=== PATIENT | female | born 1970 | race Caucasian/White ===

== ENCOUNTER 2023-05-02 15:17 | Emergency (ER) | payer BC, SELFPAY ==
[2023-05-02] VITALS (8 sets, daily range): BP systolic 148–173; BP diastolic 92–114; PULSE 81–91; RESP 15–24; TEMP 37.1; O2SAT 92–99; BMI 28.3
--- NOTE | 2023-05-02 15:45 | CTR_ITS ---
PROCEDURE INFORMATION: Exam: CT Chest With Contrast; Diagnostic Exam date and time: 05/02/2023 4:12 PM Age: 52 years old Clinical indication: Injury or trauma; Other: Fall from horse; Blunt; Additional info: Trauma; L rib/chest/abdominal pain TECHNIQUE: Imaging protocol: Diagnostic computed tomography of the chest with contrast. Radiation optimization: All CT scans at this facility use at least one of these dose optimization techniques: a the the utomated exposure control; mA and/or kV adjustment per patient size (includes targeted exams where dose is matched to clinical indication); or iterative reconstruction. Contrast material: OMNI 350; Contrast volume: 100 ml; Contrast route: INTRAVENOUS (IV); REPORTING DATA: Count of CT and Cardiac NM exams in prior 12 months: This patient has received 0 known CTs and 0 known cardiac nuclear medicine studies in the 12 months prior to the current study. COMPARISON: CR XR chest 1V portable [id number] 05/02/2023 3:57 PM RADIATION DOSE METRICS: Total DLP (mGy-cm): 1019 FINDINGS: Lungs: There is a small lung laceration left mid lung zone adjacent comminuted fracture 1-3 of the left 5th rib. There is a small-moderate size hemothorax within left paravertebral gutter and a small left anterior pneumothorax adjacent to the mediastinal pleural reflection estimated less than 10%. Right lung field is aerated and clear. Pleural spaces: See Lungs finding. Heart: Heart is not significantly enlarged. No significant coronary artery calcifications. No significant pericardial effusion. Mediastinal space: Anterior mediastinal fat planes are preserved. No evidence of mediastinal hematoma. Lymph nodes: Unremarkable. No enlarged lymph nodes. Vasculature: Unremarkable. No aortic aneurysm. Bones/joints: There is a well-defined cleft with sclerotic margins involving the lateral aspect of the left 1st rib that appears longstanding and may be developmental nature secondary to old ununited fracture. There are acute fractures involving the lateral aspects of the left 4th, 5th, 6th, 7th and 8th ribs that are mildly comminuted and mildly displaced. There also nondisplaced linear fractures involve the posterior aspects of the left 5th, 6th, 7th, 8th and 9th ribs. There is a nondisplaced fracture involving the left transverse process of T8 vertebra. Soft tissues: There is a small amount of subcutaneous emphysema left lateral chest wall. PROCEDURE INFORMATION: Exam: CT Abdomen And Pelvis With Contrast Exam date and time: 05/02/2023 4:12 PM Age: 52 years old Clinical indication: Injury or trauma; Other: Fall from horse; Blunt; Additional info: Trauma; L rib/chest/abdominal pain TECHNIQUE: Imaging protocol: Computed tomography of the abdomen and pelvis with contrast. Radiation optimization: All CT scans at this facility use at least one of these dose optimization techniques: automated exposure control; mA and/or kV adjustment per patient size (includes targeted exams where dose is matched to clinical indication); or iterative reconstruction. Contrast material: OMNI 350; Contrast volume: 100 ml; Contrast route: INTRAVENOUS (IV); REPORTING DATA: Count of CT and Cardiac NM exams in prior 12 months: This patient has received 0 known CTs and 0 known cardiac nuclear medicine studies in the 12 months prior to the current study. COMPARISON: CR XR chest 1V portable [id number] 05/02/2023 3:57 PM RADIATION DOSE METRICS: Total DLP (mGy-cm): 1019 FINDINGS: Lungs: Lung bases are clear. Liver: Normal. No mass. Gallbladder and bile ducts: Normal. No calcified stones. No ductal dilation. Pancreas: Unremarkable. Main pancreatic duct is not significantly dilated. Spleen: Spleen is unremarkable. Adrenal glands: Normal. No mass. Kidneys and ureters: Normal. No hydronephrosis. Stomach and bowel: Unremarkable. No obstruction. No mucosal thickening. Appendix: No evidence of appendicitis. Intraperitoneal space: There is a trace amount of low attenuating pelvic free fluid that may be physiological. Vasculature: Unremarkable. No abdominal aortic aneurysm. Lymph nodes: Unremarkable. No enlarged lymph nodes. Urinary bladder: Unremarkable as visualized. Reproductive: There is an IUD situated centrally within the uterus. Bones/joints: There are multiple circumscribed hypodense lesions within the liver measuring up to 2.7 cm some which are too small to adequately characterize well are joints appear to represent simple cysts. There is partial lumbarization of S1 with mild degenerative changes at L5-S1. Mild degenerative spondylolisthesis noted L4-L5. No acute bony abnormalities detected. Soft tissues: There is some bruising within the soft tissues posterior to the coccyx along the midline. CT/CT chest abdpel w/*[id number] IMPRESSION: 1. Acute mildly comminuted fractures lateral aspect left 4th through 8th ribs with small adjacent lung laceration left mid lung zone. 2. Additional nondisplaced fractures involve the posterior aspects of the left 5th through 9th ribs as well as the left transverse process of T8 vertebra. 3. Small-moderate size left hemothorax along the left paravertebral gutter and small left anterior pneumothorax estimated less than 10%. 4. Focal discontinuity involving the lateral aspect of the left 1st rib that appears longstanding as discussed above. IMPRESSION: 1. Mild superficial bruising posterior to the coccyx otherwise no evidence of abdominal or pelvic injury. 2. Additional chronic findings as above.
--- NOTE | 2023-05-02 15:45 | CTR_ITS ---
PROCEDURE INFORMATION: Exam: CT Cervical Spine Without Contrast Exam date and time: 05/02/2023 4:05 PM Age: 52 years old Clinical indication: Injury or trauma; Other: Fall from horse; Blunt trauma TECHNIQUE: Imaging protocol: Computed tomography of the cervical spine without contrast. Radiation optimization: All CT scans at this facility use at least one of these dose optimization techniques: automated exposure control; mA and/or kV adjustment per patient size (includes targeted exams where dose is matched to clinical indication); or iterative reconstruction. REPORTING DATA: Count of CT and Cardiac NM exams in prior 12 months: This patient has received 0 known CTs and 0 known cardiac nuclear medicine studies in the 12 months prior to the current study. COMPARISON: CR XR chest 1V portable [id number] 05/02/2023 3:57 PM RADIATION DOSE METRICS: Total DLP (mGy-cm): 209 FINDINGS: Bones/joints: Alignment of the cervical spine is normal. No fracture. Degenerative disc disease most prominently C5-C6. Diffuse facet arthropathy most notably on the left side at C2 through C5. Lungs: Visualized lung apices are clear. Soft tissues: Unremarkable. CT/CT cervical spin wo con* [id number] IMPRESSION: No acute findings.
--- NOTE | 2023-05-02 15:45 | CTR_ITS ---
PROCEDURE INFORMATION: Exam: CT Head Without Contrast Exam date and time: 05/02/2023 4:05 PM Age: 52 years old Clinical indication: Injury or trauma; Other: Fall from horse; Blunt trauma (contusions or hematomas) TECHNIQUE: Imaging protocol: Computed tomography of the head without contrast. Radiation optimization: All CT scans at this facility use at least one of these dose optimization techniques: automated exposure control; mA and/or kV adjustment per patient size (includes targeted exams where dose is matched to clinical indication); or iterative reconstruction. REPORTING DATA: Count of CT and Cardiac NM exams in prior 12 months: This patient has received 0 known CTs and 0 known cardiac nuclear medicine studies in the 12 months prior to the current study. COMPARISON: No relevant prior studies available. RADIATION DOSE METRICS: Total DLP (mGy-cm): 1314 FINDINGS: Brain: No midline shift. Ventricles, cisterns, and sulci are normal. No mass, acute infarct, hemorrhage, or extraaxial fluid collection. Cerebral ventricles: No ventriculomegaly. Paranasal sinuses: Visualized sinuses are unremarkable. No fluid levels. Mastoid air cells: Visualized mastoid air cells are well aerated. Bones/joints: Unremarkable. No acute fracture. Soft tissues: Unremarkable. CT/CT head wo con* [id number] IMPRESSION: No acute intracranial abnormality.
--- NOTE | 2023-05-02 15:45 | XR_ITS ---
WS: [id number] EXAMINATION: XR chest 1V portable [id number] REASON FOR EXAM: trauma COMPARISON: None available. ORDER DATE: 05/02/2023 3:47 PM TECHNIQUE: A single, portable frontal chest x-ray was obtained. X-RAY FINDINGS/IMPRESSION: No pulmonary infiltrates pleural spaces are clear. No pleural effusions. Cardiomediastinal silhouette is unremarkable except for a nodular density in the right hilum which is about 15 mm in diameter with the possibility of some additional widening of the paratracheal soft ti ssues at this level there are acute moderately displaced and some comminuted rib fractures from appro ximately the fifth to the eighth ribs inclusive. There is a slightly widened appearance of the mediastinum as noted previously. Slight amount of subcu taneous air is seen in the soft tissues of the lateral chest wall. Suspect a small left apical pneumo thorax. There is a suggestion of possible loss of height of the T6 vertebral body but only visible on the frontal view this could be artifactual and requires additional imaging for confirmation. Stat report called at 4:30 p.m.
--- NOTE | 2023-05-02 15:46 | W.ED.TRAUMA ---
Documented by User: SHAMAR Mello 05/03/23 09:02 HPI - Trauma General: Chief Complaint: Trauma Stated Complaint: Fall From Horse Time Seen by Provider: 05/02/23 15:22 Source: patient Mode of arrival: EMS Limitations: no limitations History of Present Illness: Patient is a nice 52-year-old female presents to ED today for evaluation after she was bucked off of a horse. Patient states she landed onto her left side. Patient states her main complaint at this time is pain to her left ribs. She states she is having pain with inhalation. EMS gave her pain meds in route but she states this is not helping. She has some minor scrapes to her left arm without tenderness here. She has some minor scrapes to the face but again does not complain of pain here. She denies neck or back pain. She is not sure if she struck her head when she fell. She was not stepped on by the animal. MD complaint: fall Onset (ago): hour(s) Loss of Consciousness: no Location: chest Context: fall Associated symptoms: Reports chest pain; Denies abdominal pain, back pain, dizziness, epistaxis or headache(s) Review of Systems Eyes: Denies: change in vision, blurry vision, photophobia, eye discharge, floaters or seeing flashes ENMT: Denies: throat pain, odynophagia, ear or mastoid pain, ear discharge, nasal discharge, epistaxis or sinus pain Card: Reports: chest pain Resp: Reports: dyspnea and pain on inspiration; Denies: wheezing, hemoptysis or chest congestion GI: Denies: abdominal pain : Denies: flank pain or hematuria Musc: Denies: neck pain, back pain, extremity pain or joint pain Neuro: Denies: headache(s), numbness in extremities, weakness in extremities, sensory changes or dizziness Physical Exam Const: COMMON NORMALS: average body habitus, patient oriented x3, no limitations, healthy appearing, alert and well nourished GENERAL APPEARANCE: cooperative and in distress (appears uncomfortable secondary to pain) HENMT: COMMON NORMALS: normocephalic, atraumatic and TM's normal bilaterally HEAD & SCALP: normal to inspection, normocephalic and atraumatic FACE & SINUS: sinuses nontender and other (small scrape to L superior orbit; no bony facial tenderness) TYMPANIC MEMBRANE: TM's normal bilaterally MOUTH: other (no intraoral injuries noted) Eye: COMMON NORMALS: Equal, round and reactive pupils present and EOMs intact bilaterally GENERAL EYE: normal light reflex PERIORBITAL: periorbital findings abnormal (mild ecchymosis L periorbital; full painless ROM) positive left PUPIL: Yes Equal, round and reactive pupils present DIRECT OPHTHALMOSCOPY: Yes normal light reflex Neck/C-Spine: COMMON NORMALS: full ROM GENERAL: Yes normal visual inspection CERVICAL SPINE: No pain with cervical ROM, No Cervical spine tenderness, No step off deformity and No Paracervical muscle tenderness Chest: COMMONS NORMALS: normal inspection of the chest CHEST: Yes tenderness (severe tenderness to L lateral chest wall with crepitus) Resp: COMMON NORMALS: normal respiratory effort and clear to auscultation bilaterally AUSCULTATION: clear to auscultation bilaterally Cardio: COMMON NORMALS: regular rate and regular rhythm RATE: regular rate RHYTHM: regular rhythm GI: COMMON NORMALS: Normal to inspection, nondistended, normoactive bowel sounds present, Soft to palpation, non-tender, No hepatosplenomegaly present and no masses PALPATION: Yes Soft to palpation and Yes No hepatosplenomegaly present Back/Pelvis: COMMON NORMALS: thoracic and lumbar spine normal to inspection, no thoracic nor lumbar tenderness and thoraco-lumbar ROM normal Extremity: COMMON NORMALS: normal to inspection and full ROM NARRATIVE EXTREMITY EXAM: minor abrasions throughout left forearm without bony tenderness GENERAL: Yes normal exam except as noted Neuro: LUIS COMA SCALE: document GCS findings Luis coma scale eye opening: Spontaneous Luis coma scale verbal response: Orientated Luis coma scale motor response: Obey commands [place] coma scale total score: 15 COMMON NORMALS: patient oriented x3, CN's II-XII intact bilaterally, moves all extremities, no focal motor deficits and no sensory deficits noted SENSORIUM/ORIENTATION: Yes alert Course ED course: Dr. Mcneill aware of patient and following along/awaiting CT reads-ES Vital Signs: Vital signs: Vital Signs Temperature 98.8 F 05/02/23 15:24 Pulse Rate 91 05/02/23 18:25 Respiratory Rate 15 05/02/23 18:25 Blood Pressure 155/92 05/02/23 18:25 Pulse Oximetry 99 05/02/23 18:25 Oxygen Delivery Me thod Nasal Cannula 05/02/23 18:25 Oxygen Flow Rate 5 05/02/23 18:25 MDM - Trauma Medical Decision Making Care will be transferred to Dr. Mcneill as patient has multiple rib fractures, a lung laceration, hemothorax/pneumothorax. She is being moved to a trauma room and plan will be for trauma transfer. ES Lab Data 05/02/23 15:55 05/02/23 15:55 Radiology Impressions Cervical Spine CT 05/02/23 15:45 IMPRESSION: No acute findings. Chest/Abdomen/Pelvis CT 05/02/23 15:45 IMPRESSION: 1. Acute mildly comminuted fractures lateral aspect left 4th through 8th ribs with small adjacent lung laceration left mid lung zone. 2. Additional nondisplaced fractures involve the posterior aspects of the left 5th through 9th ribs as well as the left transverse process of T8 vertebra. 3. Small-moderate size left hemothorax along the left paravertebral gutter and small left anterior pneumothorax estimated less than 10%. 4. Focal discontinuity involving the lateral aspect of the left 1st rib that appears longstanding as discussed above. IMPRESSION: 1. Mild superficial bruising posterior to the coccyx otherwise no evidence of abdominal or pelvic injury. 2. Additional chronic findings as above. ADDENDUM: 05/02/23 1718 ADDENDUM: THIS REPORT CONTAINS FINDINGS THAT MAY BE CRITICAL TO PATIENT CARE. As of 5:16 PM CDT on 05/02/2023 operations center staff confirmed that Latoya Kemp has received the exam report, is aware of the critical finding, and indicated no conference call was necessary to discuss the exam findings. Head CT 05/02/23 15:45 IMPRESSION: No acute intracranial abnormality. Chest X-Ray 05/02/23 17:42 IMPRESSION: 1. The left chest tube projects only slightly over the left pleural space, with the side port outside the ribcage. 2. Trace left pneumothorax. 3. Displaced left rib fractures. Laboratory Results WBC 14.55 10^3/uL (3.29-11.43) H 05/02/23 15:55 RBC 4.58 10^6/uL (3.85-5.65) 05/02/23 15:55 Hgb 14.80 g/dL (11.27-16.99) 05/02/23 15:55 Hct 44.7 % (36-47) 05/02/23 15:55 MCV 97.6 fl (85-98) 05/02/23 15:55 MCH 32.3 pg (27-33) 05/02/23 15:55 MCHC 33.1 g/dL (30-55) 05/02/23 15:55 RDW 12.3 % (12.1-15.1) 05/02/23 15:55 Plt Count 198 10^3/cmm (157-399) 05/02/23 15:55 MPV 9.6 fL (7.4-10.4) 05/02/23 15:55 Neut % (Auto) 86.3 % 05/02/23 15:55 Lymph % (Auto) 6.7 % 05/02/23 15:55 [place] % (Auto) 5.4 % 05/02/23 15:55 Eos % (Auto) 0.6 % 05/02/23 15:55 Baso % (Auto) 0.5 % 05/02/23 15:55 Neut # (Auto) 12.54 10^3/uL (1.8-7.7) H 05/02/23 15:55 Lymph # (Auto) 1.0 10^3/uL (0.8-4.8) 05/02/23 15:55 [place] # (Auto) 0.8 10^3/uL (0.2-0.9) 05/02/23 15:55 Eos # (Auto) 0.1 10^3/uL (0.0-0.8) 05/02/23 15:55 Baso # (Auto) 0.1 10^3/uL (0.0-0.1) 05/02/23 15:55 Nucleated RBC % (auto) 0 % 05/02/23 15:55 Nucleated RBCs # 0.0 /100WBC 05/02/23 15:55 Sodium 138 mmol/L (136-145) 05/02/23 15:55 Potassium 4.2 mmol/L (3.5-5.1) 05/02/23 15:55 Chloride 101 mmol/L (98-107) 05/02/23 15:55 Carbon Dioxide 25 mmol/L (22-29) 05/02/23 15:55 Anion Gap 16.2 (5-19) 05/02/23 15:55 BUN 16 mg/dL (6-20) 05/02/23 15:55 Creatinine 0.7 mg/dL (0.5-0.9) 05/02/23 15:55 GFR Calculation 87.9 mL/min (90-130) L 05/02/23 15:55 Glucose 108 mg/dL (65-115) 05/02/23 15:55 Calculated Osmolality 288 mOsm/kg (285-295) 05/02/23 15:55 Calcium 9.1 mg/dL (8.5-10.5) 05/02/23 15:55 Total Bilirubin 0.6 mg/dL (0.15-1.2) 05/02/23 15:55 AST 28 U/L (0-32) 05/02/23 15:55 ALT 21 U/L (0-33) 05/02/23 15:55 Alkaline Phosphatase 80 U/L (35-105) 05/02/23 15:55 Total Protein 6.6 g/dL (6.6-8.7) 05/02/23 15:55 Albumin 4.5 g/dL (3.5-5.2) 05/02/23 15:55 Globulin 2.1 g/dL (1.3-4.6) 05/02/23 15:55 All radiology interpretation(s) finalized by discharge Discharge Plan Discharge Patient Disposition: Transfer to ED Clinical Impression: Multiple fractures of rib involving four or more ribs, Hemothorax on left Laceration of lung Qualifiers: Encounter type: initial encounter Qualified Code(s): S27.339A - Laceration of lung, unspecified, initial encounter Fall from horse Qualifiers: Encounter type: initial encounter Qualified Code(s): V80.010A - Animal-rider injured by fall from or being thrown from horse in noncollision accident, initial encounter Fracture of transverse process of thoracic vertebra Qualifiers: Encounter type: initial encounter Fracture type: closed Qualified Code(s): S22.009A - Unspecified fracture of unspecified thoracic vertebra, initial encounter for closed fracture Condition: Stable Coding Level of Care Code ED Irrigation Manager for Chg Fwd Documented by User: Phil Mcneill DO 05/02/23 18:11 HPI - Trauma General: Chief Complaint: Trauma Stated Complaint: Fall From Horse Time Seen by Provider: 05/02/23 15:22 Physical Exam Neuro: LUIS COMA SCALE: document GCS findings Luis coma scale total score: 15 Procedures Chest Tube Chest Tube 1: Chest Tube Location: left, mid axillary line and fourth interspace Size of Tube (cm): 24 Chest Tube Prep: Yes betadine prep and sterile drapes applied Local Anesthetic: lidocaine 1% Amount of anesthesia used (mL): 20 Incision Made With: #11 blade Post Procedure: sutured to skin and sterile dressing applied Tube Drainage: blood Amount of initial drainage (mL): 100 Post Procedure CXR?: Yes Patient Tolerated Procedure: Yes Course Vital Signs: Vital signs: Vital Signs Temperature 98.8 F 05/02/23 15:24 Pulse Rate 91 05/02/23 18:25 Respiratory Rate 15 05/02/23 18:25 Blood Pressure 155/92 05/02/23 18:25 Pulse Oximetry 99 05/02/23 18:25 Oxygen Delivery Me thod Nasal Cannula 05/02/23 18:25 Oxygen Flow Rate 5 05/02/23 18:25 MDM - Trauma Lab Data 05/02/23 15:55 05/02/23 15:55 Radiology Impressions Cervical Spine CT 05/02/23 15:45 IMPRESSION: No acute findings. Chest/Abdomen/Pelvis CT 05/02/23 15:45 IMPRESSION: 1. Acute mildly comminuted fractures lateral aspect left 4th through 8th ribs with small adjacent lung laceration left mid lung zone. 2. Additional nondisplaced fractures involve the posterior aspects of the left 5th through 9th ribs as well as the left transverse process of T8 vertebra. 3. Small-moderate size left hemothorax along the left paravertebral gutter and small left anterior pneumothorax estimated less than 10%. 4. Focal discontinuity involving the lateral aspect of the left 1st rib that appears longstanding as discussed above. IMPRESSION: 1. Mild superficial bruising posterior to the coccyx otherwise no evidence of abdominal or pelvic injury. 2. Additional chronic findings as above. ADDENDUM: 05/02/23 1718 ADDENDUM: THIS REPORT CONTAINS FINDINGS THAT MAY BE CRITICAL TO PATIENT CARE. As of 5:16 PM CDT on 05/02/2023 operations center staff confirmed that Latoya Kemp has received the exam report, is aware of the critical finding, and indicated no conference call was necessary to discuss the exam findings. Head CT 05/02/23 15:45 IMPRESSION: No acute intracranial abnormality. Chest X-Ray 05/02/23 17:42 IMPRESSION: 1. The left chest tube projects only slightly over the left pleural space, with the side port outside the ribcage. 2. Trace left pneumothorax. 3. Displaced left rib fractures. Laboratory Results WBC 14.55 10^3/uL (3.29-11.43) H 05/02/23 15:55 RBC 4.58 10^6/uL (3.85-5.65) 05/02/23 15:55 Hgb 14.80 g/dL (11.27-16.99) 05/02/23 15:55 Hct 44.7 % (36-47) 05/02/23 15:55 MCV 97.6 fl (85-98) 05/02/23 15:55 MCH 32.3 pg (27-33) 05/02/23 15:55 MCHC 33.1 g/dL (30-55) 05/02/23 15:55 RDW 12.3 % (12.1-15.1) 05/02/23 15:55 Plt Count 198 10^3/cmm (157-399) 05/02/23 15:55 MPV 9.6 fL (7.4-10.4) 05/02/23 15:55 Neut % (Auto) 86.3 % 05/02/23 15:55 Lymph % (Auto) 6.7 % 05/02/23 15:55 [place] % (Auto) 5.4 % 05/02/23 15:55 Eos % (Auto) 0.6 % 05/02/23 15:55 Baso % (Auto) 0.5 % 05/02/23 15:55 Neut # (Auto) 12.54 10^3/uL (1.8-7.7) H 05/02/23 15:55 Lymph # (Auto) 1.0 10^3/uL (0.8-4.8) 05/02/23 15:55 [place] # (Auto) 0.8 10^3/uL (0.2-0.9) 05/02/23 15:55 Eos # (Auto) 0.1 10^3/uL (0.0-0.8) 05/02/23 15:55 Baso # (Auto) 0.1 10^3/uL (0.0-0.1) 05/02/23 15:55 Nucleated RBC % (auto) 0 % 05/02/23 15:55 Nucleated RBCs # 0.0 /100WBC 05/02/23 15:55 Sodium 138 mmol/L (136-145) 05/02/23 15:55 Potassium 4.2 mmol/L (3.5-5.1) 05/02/23 15:55 Chloride 101 mmol/L (98-107) 05/02/23 15:55 Carbon Dioxide 25 mmol/L (22-29) 05/02/23 15:55 Anion Gap 16.2 (5-19) 05/02/23 15:55 BUN 16 mg/dL (6-20) 05/02/23 15:55 Creatinine 0.7 mg/dL (0.5-0.9) 05/02/23 15:55 GFR Calculation 87.9 mL/min (90-130) L 05/02/23 15:55 Glucose 108 mg/dL (65-115) 05/02/23 15:55 Calculated Osmolality 288 mOsm/kg (285-295) 05/02/23 15:55 Calcium 9.1 mg/dL (8.5-10.5) 05/02/23 15:55 Total Bilirubin 0.6 mg/dL (0.15-1.2) 05/02/23 15:55 AST 28 U/L (0-32) 05/02/23 15:55 ALT 21 U/L (0-33) 05/02/23 15:55 Alkaline Phosphatase 80 U/L (35-105) 05/02/23 15:55 Total Protein 6.6 g/dL (6.6-8.7) 05/02/23 15:55 Albumin 4.5 g/dL (3.5-5.2) 05/02/23 15:55 Globulin 2.1 g/dL (1.3-4.6) 05/02/23 15:55 Discharge Plan Discharge Patient Disposition: Transfer to ED Clinical Impression: Multiple fractures of rib involving four or more ribs, Hemothorax on left Laceration of lung Qualifiers: Encounter type: initial encounter Qualified Code(s): S27.339A - Laceration of lung, unspecified, initial encounter Fall from horse Qualifiers: Encounter type: initial encounter Qualified Code(s): V80.010A - Animal-rider injured by fall from or being thrown from horse in noncollision accident, initial encounter Fracture of transverse process of thoracic vertebra Qualifiers: Encounter type: initial encounter Fracture type: closed Qualified Code(s): S22.009A - Unspecified fracture of unspecified thoracic vertebra, initial encounter for closed fracture Condition: Stable Coding Level of Care Code ED Irrigation Manager for Vijay Yin
[2023-05-02] MEDS: iohexol 350 mg/mL 500 mL Btl (per mL) IV (15:52)
[2023-05-02 16:03] LABS: Basophils # 0.1 10^3/uL (0.0-0.1); Basophils % 0.5 %; Eosinophils # 0.1 10^3/uL (0.0-0.8); Eosinophils % 0.6 %; Hematocrit 44.7 % (36-47); Lymphocytes % 6.7 %; Mean Corpuscular HGB Conc 33.1 g/dL (30-55); Mean Corpuscular Hemoglobin 32.3 pg (27-33); Mean Corpuscular Volume 97.6 fl (85-98); Mean Platelet Volume 9.6 fL (7.4-10.4); Monocytes # 0.8 10^3/uL (0.2-0.9); Monocytes % 5.4 %; Neutrophils # 12.54 10^3/uL (1.8-7.7); Neutrophils % 86.3 %; Nucleated Red Blood Cells % 0 %; Platelet Count 198 10^3/cmm (157-399); Red Blood Count 4.58 10^6/uL (3.85-5.65); Red Cell Distribution Width 12.3 % (12.1-15.1); White Blood Count 14.55 10^3/uL (3.29-11.43)
[2023-05-02 16:18] LABS: Alanine Aminotransferase 21 U/L (0-33); Albumin Level 4.5 g/dL (3.5-5.2); Alkaline Phosphatase 80 U/L (35-105); Anion Gap 16.2 (5-19); Aspartate Amino Transferase 28 U/L (0-32); Blood Urea Nitrogen 16 mg/dL (6-20); Calcium 9.1 mg/dL (8.5-10.5); Carbon Dioxide 25 mmol/L (22-29); Chloride 101 mmol/L (98-107); Globulin 2.1 g/dL (1.3-4.6); Glomerular Filtration Rate 87.9 mL/min (90-130); Glucose 108 mg/dL (65-115); Osmolality Calculated 288 mOsm/kg (285-295); Potassium 4.2 mmol/L (3.5-5.1); Sodium 138 mmol/L (136-145); Total Bilirubin 0.6 mg/dL (0.15-1.2); Total Protein 6.6 g/dL (6.6-8.7)
[2023-05-02] MEDS: morphine 4 mg/mL SDV 1 mL IVP (16:26)
[2023-05-02] MEDS: ondansetron 2 mg/ML SDV 2 mL 4 MG IVP (16:26)
[2023-05-02] MEDS: HYDROmorphone 1 mg/mL INJ 1 mL IVP ×2 (17:29→18:21)
--- NOTE | 2023-05-02 17:42 | XRR_ITS ---
PROCEDURE INFORMATION: Exam: XR Chest Exam date and time: 05/02/2023 6:13 PM Age: 52 years old Clinical indication: Device placement; Chest tube; Additional info: Chest pain TECHNIQUE: Imaging protocol: Radiologic exam of the chest. Views: 1 view. COMPARISON: CT chest abdpel w/*[id number] 05/02/2023 4:12 PM FINDINGS: Tubes, catheters and devices: Left chest tube placement with tip along the posterolateral left 5th rib. The side port is outside the ribcage. Lungs: Atelectasis or contusion in the left lung base. The right lung is clear. Pleural spaces: Trace left apical pneumothorax. Heart/Mediastinum: Unremarkable. No cardiomegaly. Bones/joints: Multiple displaced lower left lateral rib fractures. Soft tissues: Soft tissue gas in the left chest wall. XR/XR chest 1V portable [id number] IMPRESSION: 1. The left chest tube projects only slightly over the left pleural space, with the side port outside the ribcage. 2. Trace left pneumothorax. 3. Displaced left rib fractures.
[2023-05-02] MEDS: lidocaine 2% INJ 20 mL INJECTION (18:21)
== END 2023-05-02 19:03 ==
PROVIDERS: Emergency Provider Physician Assistant
DX: S22.42XA Multiple fractures of ribs, left side, initial encounter for closed fracture (principal); S27.1XXA Traumatic hemothorax, initial encounter; S22.069A Unspecified fracture of T7-T8 vertebra, initial encounter for closed fracture; S27.331A Laceration of lung, unilateral, initial encounter; V80.010A Animal-rider injured by fall from or being thrown from horse in noncollision accident, initial encounter
CPT/HCPCS: 32551; 36415; 70450; 71045; 71260; 72125; 74177; 80053; 85025; 96374; 96375; 96376; 99285; J1170; J2270; J2405; Q9967